=== PATIENT | female | born 1970 | race Hispanic/Latino ===

== ENCOUNTER → 2019-07-30 | Outpatient (CLI) | payer OTHER ==
[~2019-07-30] MED LIST: ESTR1PAT68 TD; LOSA1TAB7 PO; VERA100C2 PO
== END | disposition home or self-care (01) ==
LOC: RAH 09:03
PROVIDERS: ATTEND Internal Medicine Cardiovascular Disease
DX: Z13.6 Encounter for screening for cardiovascular disorders (principal)
CPT/HCPCS: 75571

== ENCOUNTER → 2019-07-30 | Outpatient (CLI) | payer BC, OTHER | END | disposition home or self-care (01) | LOC: SHCH 09:02 | PROVIDERS: ATTEND Internal Medicine Cardiovascular Disease | DX: I10 Essential (primary) hypertension (principal) | CPT/HCPCS: 93306 ==

== ENCOUNTER → 2022-01-09 | Outpatient (CLI) | payer OTHER ==
[~2022-01-09] MED LIST changes: -VERA100C2 PO; +VERA100C4 PO
== END | disposition home or self-care (01) ==
LOC: RAH 08:21
PROVIDERS: ATTEND Physician Assistant
DX: S23.3XXD Sprain of ligaments of thoracic spine, subsequent encounter (principal); S33.5XXD Sprain of ligaments of lumbar spine, subsequent encounter; X58.XXXD Exposure to other specified factors, subsequent encounter
CPT/HCPCS: 72148

== ENCOUNTER → 2022-02-17 | Outpatient (CLI) | payer OTHER | END | disposition home or self-care (01) | LOC: RAH 08:44 | PROVIDERS: ATTEND Internal Medicine Cardiovascular Disease | DX: R07.9 Chest pain, unspecified (principal); R00.2 Palpitations; I10 Essential (primary) hypertension; R07.89 Other chest pain | CPT/HCPCS: 93015 ==

== ENCOUNTER → 2022-06-02 | Outpatient (CLI) | payer OTHER ==
[~2022-06-02] MED LIST changes: +LOSA-424 PO; -LOSA1TAB7 PO
== END | disposition home or self-care (01) ==
LOC: RAH 08:13
PROVIDERS: ATTEND Internal Medicine
DX: M25.511 Pain in right shoulder (principal)
CPT/HCPCS: 73221

== ENCOUNTER → 2022-12-02 | Outpatient (CLI) | payer OTHER | END | disposition home or self-care (01) | LOC: RAH 08:11 | PROVIDERS: ATTEND Internal Medicine | DX: Z12.31 Encounter for screening mammogram for malignant neoplasm of breast (principal) | CPT/HCPCS: 77067 ==

== ENCOUNTER → 2023-05-10 | Outpatient (CLI) | payer OTHER | END | disposition home or self-care (01) | LOC: RAH 13:12 | PROVIDERS: ATTEND Internal Medicine Cardiovascular Disease | DX: Z13.6 Encounter for screening for cardiovascular disorders (principal) | CPT/HCPCS: 75571 ==

== ENCOUNTER → 2023-08-14 | Outpatient (CLI) | payer OTHER | END | disposition home or self-care (01) | LOC: RAH 07:35 | PROVIDERS: ATTEND Internal Medicine | DX: R19.4 Change in bowel habit (principal); R14.0 Abdominal distension (gaseous); R10.9 Unspecified abdominal pain | CPT/HCPCS: 76700 ==

== ENCOUNTER → 2024-01-15 | Outpatient (CLI) | payer OTHER | END | disposition home or self-care (01) | LOC: RAH 08:03 | PROVIDERS: ATTEND Internal Medicine | DX: Z12.31 Encounter for screening mammogram for malignant neoplasm of breast (principal) | CPT/HCPCS: 77067 ==

== ENCOUNTER 2025-03-03 06:44 | Day surgery (SDC) | payer OTHER ==
[2025-02-25 09:45] LABS: BASOPHILS # (AUTO) 0.04 K/uL (0.00-0.20); BASOPHILS % (AUTO) 0.7 % (0.0-5.0); EOSINOPHILS # (AUTO) 0.11 K/uL (0.00-0.70); HEMATOCRIT 40.3 % (36-48); IMMATURE GRANULOCYTE ABSOLUTE 0.01 K/uL (0-1); LYMPHOCYTES % (AUTO) 36.2 % (21.0-51.0); MEAN CORPUSCULAR HEMOGLOBIN 29.2 pg (27.0-33.0); MEAN CORPUSCULAR HGB CONC 33.3 g/dL (32.0-36.0); MEAN CORPUSCULAR VOLUME 87.8 fL (79-99); MONOCYTES # (AUTO) 0.4 K/uL (0.1-1.0); MONOCYTES % (AUTO) 7.6 % (3.0-13.0); NEUTROPHILS % (AUTO) 53.3 % (40.0-77.0); PLATELET COUNT (AUTO) 245 K/uL (130-400); RED BLOOD CELL COUNT(AUTO) 4.59 MIL/uL (4.00-5.50); RED CELL DISTRIBUTION WIDTH 13.4 % (11.0-15.5); WHITE BLOOD COUNT (AUTO) 5.5 K/uL (4.8-10.8)
[2025-02-25 09:51] VITALS: BP 146/78; PULSE 64; RESP 18; TEMP 97.2
[2025-02-25 09:52] LABS: CREATININE 0.7 mg/dL (0.5-1.0)
[2025-03-03] VITALS (13 sets, daily range): BP systolic 128–154; BP diastolic 71–90; PULSE 56–66; RESP 13–18; TEMP 96.7–97.6
[~2025-03-03] VITALS: Ht 162.6 cm; Wt 87.9 kg
[~2025-03-03 06:44] MED LIST changes: +LEVO50TA11 PO; +METO-391 PO; -VERA100C4 PO
[2025-03-03] MEDS ORDERED: LACTATED RINGERS 1000ML 1,000 ML IV ONE (06:54)
[2025-03-03] MEDS ORDERED: EPINEPHrine PF 1MG (1:1,000) 1 MG/ML AMP ONE (08:49)
[2025-03-03] MEDS ORDERED: LIDOCAINE PF 100MG/5ML (2%) SYRINGE 5ML ONE (10:00)
[2025-03-03] MEDS ORDERED: proPOFol 10 MG/ML 20ML VIAL IV ONE (10:01)
[2025-03-03] MEDS ORDERED: GLYCOPYRROLATE 0.2 MG/ML 5 ML VIAL ONE (10:01)
[2025-03-03] MEDS ORDERED: dexaMETHasone SOD PHOSPHATE 10MG/ML 1ML VIAL ONE (10:01)
[2025-03-03] MEDS ORDERED: SUCCINYLCHOLINE CHLORIDE 20 MG/ML 10 ML VIAL ONE (10:01)
[2025-03-03] MEDS ORDERED: ondanSETRON 4MG INJ ONE (10:01)
[2025-03-03] MEDS ORDERED: FENTanyl CITRate PF 50 MCG/1 ML 2ML VIAL ONE ×3 (10:02→12:34)
[2025-03-03] MEDS ORDERED: NEOSTIGMINE METHYLSULFATE 1MG/ML IV ONE (10:02)
[2025-03-03] MEDS ORDERED: rocuRONium bROMide 10MG/1ML 5ML VL ONE (10:02)
[2025-03-03] MEDS ORDERED: MIDAZOLAM HCL 1 MG/ML 2ML VIAL ONE (10:05)
[2025-03-03] MEDS: ceFAZolin SODIUM 2 GM VIAL ONE (10:33)
[2025-03-03] MEDS: EPINEPHrine PF 1MG (1:1,000) 1 MG/ML AMP MISC ONE ×2 (11:15)
--- NOTE | 2025-03-03 13:48 | OP ---
Operative Note: DATE OF PROCEDURE: 03/03/25 SURGEON: ZENON ODELL MD JEWELRY ENAMELER: [Ann Marie Alcocer CFA] ANESTHESIA: [General anesthesia plus regional block] ANESTHESIOLOGIST/PRIMER EXPEDITOR AND DRIER: [Alexander Campoverde CRNA] PREOPERATIVE DIAGNOSIS: [Right shoulder AC joint ganglion cyst. Rotator cuff tendinosis, possible tear. Bicipital tendinitis possible tear.] POSTOPERATIVE DIAGNOSIS: [Right shoulder AC joint ganglion cyst. Intra- articular small degenerative tear supraspinatus, subacromial scar tissue.] PROCEDURE: [Right shoulder arthroscopy, rotator cuff debridement, subacromial space debridement, open AC joint ganglion cyst excision] ESTIMATED BLOOD LOSS: [To any mL] INDICATIONS: [The patient is a 54-year-old female with a history of previous surgery of the shoulder that included decompression that presents also with the presence of recurrent pain as well as large ganglion cyst in the subcutaneous area of the AC joint level. MRI positive for tendinosis, possible tear. The patient is brought to the operating room for an arthroscopic procedure and to procedures as needed. Open AC joint ganglion cyst excision. Procedure understood, risks, benefits and possible complications were explained and the patient agreed to sign the consent form] DESCRIPTION OF PROCEDURE: [After adequate general anesthesia was achieved and regional block obtained the patient was placed in the beach chair position and the upper extremity was prepped and draped in the usual manner. After identification of the bony landmarks we proceeded to make a small incision in the posterior aspect of the shoulder subacromial area through the previous surgical scar present in the skin followed by blunt dissection with the arthroscopic trocar entering into the shoulder joint removing the trocar and applying the arthroscope into the sheath. After inflating the joint with fluid evaluation of the joint revealed normal subscapularis, biceps tendon, labrum, glenohumeral joint surfaces. The supraspinatus tendons was noted to have some intra-articular surface tearing of the supraspinatus tendon which was sharply debrided with the use of the cautery after application of an anterior trocar also using the anterior surgical scar present. After the debris was removed we noted that the tendon per se was perfectly intact and there was no loss of the attachment. The infraspinatus tendon was normal. We then proceeded to remove the arthroscope from the joint and after reapplying the trocar into the sheath we redirected it and inserted it into the subacromial space. Once again we switch the trocar for the arthroscope and evaluation of the subacromial space revealed significant amount of post- surgical scar tissue and a third lateral incision was made in the lateral arthroscopic surgical scar through the skin and then with a blunt trocar we proceeded to enter this area followed by application of the electrocautery proceeding then to remove most of the tissue opening the subacromial space noticing the postoperative changes from previous surgery with a an adequate decompression of the subacromial area. There was still a slight amount of distal clavicle present in the area probably causing a mild impingement and we proceeded to shave the undersurface of the clavicle at the joint to open space for the supraspinatus tendon medially. At the completion of this debridement we proceeded then to remove the arthroscope and closed the incisions with 2-0 Monocryl inverted stitches. Attention was then given to the supraclavicular area where a palpable ganglion cyst was used as a reference for the incision in the skin going from anterior to posterior followed by dissection of the subcutaneous tissue until the cyst was identified and then with the use of a tenotomy scissors and an Allis clamp the ganglions where removed passing the specimen to the back table. It was noted that the patient had an opening of the superior acromioclavicular joint capsule. To prevent a recurrence of the cyst I made an anterior and a posterior fat tissue flaps which were mobilized to cover the defect of the AC joint and then we proceeded to secure this flaps to the clavicle and the acromion passing sutures through the bone obtain an acceptable covering of the defect. The wound was copiously irrigated with the antibiotic solution and then we proceeded to close the incision with a approximation of the skin with 2-0 Vicryl inverted stitches followed by closure of the skin with 3-0 Monocryl subcuticularly. The incisions were covered with Dermabond and op-site dressings were applied. The drapes were then removed and the patient was placed in an arm sling. The bed was placed in the supine position and the patient was transferred to a stretcher and taken to recovery room for follow-up by anesthesia. There were no complications during the procedure.] ZENON ODELL MD March 03, 2025 13:48
[2025-03-03] MEDS ORDERED: HYDR-4060 PO (13:51)
[2025-03-03] MEDS: ondanSETRON 4MG INJ ONE (14:36)
== END 2025-03-03 15:50 | disposition home or self-care (01) ==
LOC: DAH 06:44
PROVIDERS: ATTEND Orthopaedic Surgery
DX: M75.101 Unspecified rotator cuff tear or rupture of right shoulder, not specified as traumatic (principal); M67.411 Ganglion, right shoulder; M75.21 Bicipital tendinitis, right shoulder; M75.81 Other shoulder lesions, right shoulder; M25.811 Other specified joint disorders, right shoulder; M25.511 Pain in right shoulder; I10 Essential (primary) hypertension; E03.9 Hypothyroidism, unspecified; Z79.899 Other long term (current) drug therapy; Z79.890 Hormone replacement therapy; Z98.890 Other specified postprocedural states; Z98.891 History of uterine scar from previous surgery; Z82.3 Family history of stroke; Z82.49 Family history of ischemic heart disease and other diseases of the circulatory system; Z84.89 Family history of other specified conditions; Z88.8 Allergy status to other drugs, medicaments and biological substances
CPT/HCPCS: 80048; 85025; 36415; 29824; 13120; 23076; 29826; 64415; 88304; A4663; J7030; J7120; J3010 ×3; J1100; J0330; J3490 ×2; J2003; J0171 ×2; J2250; J2704; J2405 ×2; J2710; J0690; A6204; A4649; A4930 ×2; A4215; A4223; A4222; A4221

== ENCOUNTER → 2025-05-21 | Outpatient (CLI) | payer OTHER ==
[~2025-05-21] MED LIST changes: +HYDR-4060 PO
[2025-05-21 09:02] LABS: IMMATURE GRANULOCYTE ABSOLUTE 0.01 K/uL (0-1); NUCLEATED RED BLOOD CELLS 0.0 % (0.0-0.19); PLATELET COUNT (AUTO) 244 K/uL (130-400); RED BLOOD CELL COUNT(AUTO) 4.56 MIL/uL (4.00-5.50); RED CELL DISTRIBUTION WIDTH 13.4 % (11.0-15.5); WHITE BLOOD COUNT (AUTO) 4.9 K/uL (4.8-10.8)
[2025-05-21 09:36] LABS: ASPARTATE AMINOTRANSFERASE 14.0 U/L (10-37); CREATININE 0.6 mg/dL (0.5-1.0); GLOMERULAR FILTR. RATE CALC 105.0 mL/min (>90); GLUCOSE,RANDOM 122.0 mg/dL (70-105); LDL DIRECT 133.0 mg/dL (0-99); SODIUM SERUM 142.0 mmol/L (136-145); TOTAL PROTEIN, SERUM 7.0 g/dL (6.0-8.3); UREA NITROGEN, BLOOD 18.0 mg/dL (7-18)
[2025-05-25 20:10] LABS: ALLERGEN COCONUT <0.10 kU/L (Class 0); ALLERGEN PECAN NUT <0.10 kU/L (Class 0)
== END | disposition home or self-care (01) ==
LOC: LAB 05-20 13:04
PROVIDERS: ATTEND Internal Medicine
DX: I10 Essential (primary) hypertension (principal); E03.9 Hypothyroidism, unspecified; L50.9 Urticaria, unspecified
CPT/HCPCS: 36415; 80053; 80061; 84443; 85025; 86003

== ENCOUNTER → 2025-07-07 | Outpatient (CLI) | payer OTHER | END | disposition home or self-care (01) | LOC: RAH 08:42 | PROVIDERS: ATTEND Internal Medicine | DX: Z12.31 Encounter for screening mammogram for malignant neoplasm of breast (principal) | CPT/HCPCS: 77067 ==

== ENCOUNTER 2025-07-28 05:48 | Day surgery (SDC) | payer OTHER ==
[2025-07-28] VITALS (11 sets, daily range): BP systolic 106–141; BP diastolic 59–76; PULSE 56–70; RESP 12–18; TEMP 97.1–98
[~2025-07-28] VITALS: Ht 162.6 cm; Wt 83.9 kg
[~2025-07-28 05:48] MED LIST changes: +CALC-877 PO; +ESCI10TA PO; -HYDR-4060 PO; -METO-391 PO; +METO-408 PO; +MULT-1367 PO; +UBID100C10 PO
[2025-07-28] MEDS: 0.9%NACL 1000ML 1,000 ML IV ONE (06:54)
[2025-07-28] MEDS ORDERED: LIDOCAINE HCL 1% 20 ML VIAL ONE (07:13)
--- NOTE | 2025-07-28 09:07 | NUR ---
Full and complete discharge instructions given to Patient and Family both verbally and in writing. Explained GI procedure precautions and follow up. All questions answered. PIV removed with catheter tip intact. Family at bedside appearing supportive. W/C to POV with Family to home
== END 2025-07-28 09:12 | disposition home or self-care (01) ==
LOC: DAH 05:48 → ENDO 05:48
PROVIDERS: ATTEND Internal Medicine
DX: R14.0 Abdominal distension (gaseous) (principal); K21.00 Gastro-esophageal reflux disease with esophagitis, without bleeding; K62.89 Other specified diseases of anus and rectum; K44.9 Diaphragmatic hernia without obstruction or gangrene; K31.89 Other diseases of stomach and duodenum; J45.909 Unspecified asthma, uncomplicated; I10 Essential (primary) hypertension; F32.A Depression, unspecified; F41.9 Anxiety disorder, unspecified; K59.04 Chronic idiopathic constipation; K66.0 Peritoneal adhesions (postprocedural) (postinfection); E03.9 Hypothyroidism, unspecified; Z90.710 Acquired absence of both cervix and uterus; Z80.0 Family history of malignant neoplasm of digestive organs; Z98.890 Other specified postprocedural states; Z86.0100 Personal history of colon polyps, unspecified; Z88.8 Allergy status to other drugs, medicaments and biological substances; Z91.040 Latex allergy status; Z79.899 Other long term (current) drug therapy
CPT/HCPCS: 45380; 43239; J7030; J2704; A4620; A4215; J3490

== ENCOUNTER → 2025-08-04 | Outpatient (CLI) | payer OTHER ==
--- NOTE | 2025-08-05 12:25 | HMCIMG ---
BILATERAL BREAST ULTRASOUND: Finding: Real-time examination of the both breasts demonstrates homogeneous echotexture throughout both the breasts without evidence of focal solid mass. There is a cyst seen in right subareolar region measuring 0.6 x 0.4 cm at 11:00. The left breast is a cyst seen at 2:00 measuring 0.4 x 0.3 x 0.6 cm. At 4:00 there is a cyst in the left breast subareolar region measuring 0.5 x 0.5 x 0.5 cm. IMPRESSION: Fibrocystic changes of both breasts and with dense breasts. There is no solid mass seen. I would recommend annual mammography with tomography with bilateral breast sonogram FINAL ASSESSMENT: ACR: BI-RAD- 2. Benign Finding.
== END | disposition home or self-care (01) ==
LOC: RAH 11:10
PROVIDERS: ATTEND Internal Medicine
DX: N60.12 Diffuse cystic mastopathy of left breast (principal); N60.11 Diffuse cystic mastopathy of right breast; R92.8 Other abnormal and inconclusive findings on diagnostic imaging of breast

== ENCOUNTER → 2025-08-17 | Outpatient (CLI) | payer OTHER ==
[~2025-08-17] MED LIST changes: -UBID100C10 PO; +UBID100C51 PO
--- NOTE | 2025-08-19 08:57 | HMCSR ---
APPROVED REPORT EXAM: Two-dimensional and M-mode echocardiogram with Doppler and color Doppler. INDICATION ICD: Dyspnea R06.00 2D Dimensions RVDd 3.5 cm LVEF(%) 56.1 (>50%) LVED Vol(simp.) 108.0 mL IVSd 0.9 (0.7-1.1cm) FS(%) 29 % LVES Vol(simp.) 49.0 mL LVDd 4.2 (3.8-5.6cm) LA (2D) 3.9 (1.6-4.0cm) LVEF(%, simp.) 54 % PWd 0.8 (0.7-1.1cm) Ao Root(2D) 2.7 (2.0-3.7cm) LA ESV INDEX (BP) 28.87 mL/m2 IVSs 0.9 cm LVOT diam 2.1 (1.8-2.4cm) LVDs 3.0 (2.5-4.0cm) IVC diam 1.4 cm PWs 1.2 cm M-Mode Dimensions EPSS 0.7 cm LA (MM) 3.4 (1.6-4.0cm) Ao Root(MM) 2.7 (2.0-3.7cm) Aortic Valve AoV Vmax 1.4 m/s Ao Peak GR 8.0 mmHg LVOT Vmax 1.2 m/s AoV VTI 0.3 m Ao Mean GR 4.7 mmHg LVOT VTI 0.23 m DAISY (VMAX) 2.81 cm2 Al P1/2T 921 ms DAISY (VTI) 2.6 cm2 Mitral Valve MV E Vmax 103.8 cm/s DECEL Time 164 ms MV A Vmax 95.5 cm/s P 1/2 T 53 ms E/A ratio 1.1 MVA (PHT) 4.1 cm2 TDI E/E' Medial 19.5 E/E' Lateral 11.3 Medial E' Peak V 5.32 cm/s Lateral E' Peak V 9.18 cm/s Pulmonary Valve PV Vmax 0.9 m/s PV VTI 0.19 m PV Mean GR 2.3 mmHg PV Peak GR 3.5 mmHg Tricuspid Valve TR Vmax 2.3 m/s RAP (EST) 3 mmHg RVSP 24.4 mmHg TR Peak GR 21.4 mmHg Left Ventricle The left ventricle is normal size. No regional wall motion abnormalities noted. There is normal left ventricular wall thickness. LVEF is 55%. No left ventricle thrombus noted on this study. The left ventricular diastolic function is normal. Right Ventricle The right ventricle is normal size. The right ventricular systolic function is normal. Atria The left atrium size is normal. The right atrium size is normal. Aortic Valve Trace of aortic regurgitation is present. There is no aortic valvular stenosis. Mitral Valve The mitral valve is normal in structure. There is no mitral valve regurgitation noted. There is no mitral valve stenosis. Tricuspid Valve The tricuspid valve is normal in structure. There is trace of tricuspid valve regurgitation noted. Pulmonic Valve The pulmonary valve is normal in structure. There is no pulmonic valvular regurgitation. Great Vessels The aortic root is normal in size. The IVC is normal in size and collapses >50% with inspiration. Pericardium There is no pericardial effusion. Other Information Quality : Adequate Conclusion The left ventricle is normal size. LVEF is 55%. The right ventricle is normal size. The left atrium size is normal. Trace of aortic regurgitation is present. There is no aortic valvular stenosis. The mitral valve is normal in structure. There is no mitral valve regurgitation noted. There is no mitral valve stenosis. There is trace of tricuspid valve regurgitation noted. The pulmonary valve is normal in structure. The aortic root is normal in size. The IVC is normal in size and collapses >50% with inspiration. There is no pericardial effusion.
== END | disposition home or self-care (01) ==
LOC: RAH 14:01
PROVIDERS: ATTEND Internal Medicine Cardiovascular Disease
DX: R06.00 Dyspnea, unspecified (principal)
CPT/HCPCS: 93306

== ENCOUNTER → 2025-09-28 | Outpatient (CLI) | payer OTHER ==
--- NOTE | 2025-09-28 12:12 | HMCIMG ---
PROCEDURE: Esophagram. TECHNIQUE: Oral ingestion of barium and effervescent crystals was performed and multiple fluoroscopic images were obtained to evaluate the esophagus. FLUOROSCOPY TIME: 1.7 minutes FINDINGS: The esophagus demonstrates normal motility. The mucosa is normal without evidence of mass, ulceration, or stricture. There was grade 1 gastroesophageal reflux witnessed during this examination. There is small hiatal hernia. A barium tablet easily passed through the esophagus into the stomach without hold up. Real-time visualization of swallowing were performed and demonstrated normal swallowing mechanism, normal contour, and normal mucosa. IMPRESSION: Small hiatal hernia with grade 1 esophageal reflux Otherwise normal remaining upper GI series.
== END | disposition home or self-care (01) ==
LOC: RAH 08:47
PROVIDERS: ATTEND Internal Medicine
DX: K21.9 Gastro-esophageal reflux disease without esophagitis (principal); K44.9 Diaphragmatic hernia without obstruction or gangrene; R13.10 Dysphagia, unspecified
CPT/HCPCS: 74220